=== PATIENT | female | born 1960 | race Hispanic/Latino ===

== ENCOUNTER 2022-08-11 10:31 | Emergency (ER) | payer OTHER ==
[~2022-08-11] VITALS: Ht 165.1 cm; Wt 74.8 kg
[2022-08-11 10:45] VITALS: O2SAT 100
== END 2022-08-11 11:19 | disposition home or self-care (01) ==
LOC: ER 10:35
DX: F31.9 Bipolar disorder, unspecified (principal); R51.9 Headache, unspecified
CPT/HCPCS: 99282